=== PATIENT | male | born 1955 | race Caucasian/White ===

== ENCOUNTER 2020-05-25 17:22 | Emergency (ER) | payer MEDICAID ==
[2020-05-25] MEDS ORDERED: LIDOCAINE 1% 2 ML VIAL MC ONE (18:16)
[2020-05-25] MEDS ORDERED: SULFAMETH/TRIMETH DS 800/160 MG TABLET PO STA (18:16)
--- NOTE | 2020-05-25 18:25 | ED Physician Documentation ---
History of Present Illness - Stated complaint Stated Complaint: LT ARM WOUND/OOZE - Chief complaint Chief Complaint: Wound - History obtained from History obtained from: Patient - History of Present Illness Timing: How many days ago (4) Pain level max: 3 Pain level now: 3 - Additonal information Additional information: 64-year-old male presents to the emergency department the wound to the left wrist. He states he thinks he was bit by a spider a few days ago, noticed increased swelling and redness. Today he squeezed the area and pus came out. Tetanus is up-to-date. He is right-handed. Nothing makes it better or worse. No fevers. No chills. Review of Systems Constitutional: denies: Fever, Chills GI: denies: Vomiting PD PAST MEDICAL HISTORY - Past Medical History Cardiovascular: Deep vein thrombosis Respiratory: COPD Neuro: None Endocrine/Autoimmune: None GI: None : None HEENT: None Psych: Anxiety Musculoskeletal: None Derm: None - Past Surgical History Past Surgical History: No - Present Medications Home Medications: Ambulatory Orders Medication Instructions Recorded Confirmed Cephalexin [Keflex] 500 mg PO Q6H #40 capsule 05/25/20 Sulfamethox/Trimeth 800/160 1 each PO BID #20 tablet 05/25/20 [Bactrim Ds 800/160] - Allergies Allergies/Adverse Reactions: Allergies Allergy/AdvReac Type Severity Reaction Status Date / Time No Known Drug Allergies Allergy Verified 05/25/20 17:42 - Social History Does the pt smoke?: Yes Smoking Status: Former smoker Does the pt drink ETOH?: No Does the pt have substance abuse?: Yes Substance Use and Type: Marijuana, Other - Immunizations Immunizations are current?: Yes - POLST Patient has POLST: No PD ED PE NORMAL - Vitals Vital signs reviewed: Yes - General General: Alert and oriented X 3, No acute distress - HEENT HEENT: Moist mucous membranes - Derm Derm: Warm and dry - Extremities Extremities: Other (Left wrist, volar aspect-4 x 4 centimeter area of erythema with a fluctuant area in the middle which appears to have spontaneously ruptured and drained. A small amount of pus was able to be expressed. This was cultured. Mild redness to the remainder of the proximal forearm. Does not extend above) - Neuro Neuro: Alert and oriented X 3 Results - Vitals Vitals: Vital Signs - 24 hr 05/25/20 05/25/20 05/25/20 17:38 17:42 18:41 Temperature 36.2 C L 36.1 C L 36.1 C L Heart Rate 106 H 102 H 100 Respiratory 16 16 16 Rate Blood Pressure 177/101 H 168/93 H 158/88 H O2 Saturation 100 100 100 Oxygen O2 Source Room air - Labs Labs: Microbiology 05/25/20 18:30 Wound Culture - Preliminary Wrist - Left Staphylococcus Aureus PD MEDICAL DECISION MAKING - ED course Complexity details: considered differential, d/w patient ED course: Patient with a left wrist cellulitis/abscess. This spontaneously drained. No indication to further open the area at this time. Appears sufficiently drained. We will trial him on antibiotics and see how he progresses. The wound was cultured. Patient counseled regarding signs and symptoms for which I believe and urgent re-evaluation would be necessary. Patient with good understanding of and agreement to plan and is comfortable going home at this time This document was made in part using voice recognition software. While efforts are made to proofread this document, sound alike and grammatical errors may occur. Tetanus is up-to-date. Does not use IV drugs. Departure - Departure Disposition: 01 Home, Self Care Clinical Impression: Abscess Instructions: ED Abscess IandD Follow-Up: Rachel Sanchez MD [Primary Care Provider] - Within 3 Days Prescriptions: Sulfamethox/Trimeth 800/160 [Bactrim Ds 800/160] 1 each PO BID #20 tablet Cephalexin [Keflex] 500 mg PO Q6H #40 capsule Comments: Take all antibiotics until gone. Return if you worsen. Follow-up with your doctor in 3 days for a wound check. Return especially for fevers, worsening redness and/or swelling. This should start to improve within the next 24 hours. Soak the affected area 3 times a day in warm water to help drain the pus. Discharge Date/Time: 05/25/20 18:49
[2020-05-25] MEDS: cefTRIAXone 1 GM VIAL IM STA (18:32)
[2020-05-25 18:50] VITALS: BP 158/88
== END 2020-05-25 18:49 | disposition home or self-care (01) ==
LOC: ED 17:22
DX: L02.414 Cutaneous abscess of left upper limb (principal); Z87.891 Personal history of nicotine dependence
CPT/HCPCS: 87070; 87181; 87205; 96372; 99283; A9270

== ENCOUNTER 2022-07-21 08:00 | Outpatient (CLI) | payer MEDICARE | END 2022-07-21 23:59 | disposition home or self-care (01) | LOC: MERGE 08:00 → LAB.S 08:00 | PROVIDERS: ATTEND Physician Assistant | DX: R30.0 Dysuria (principal) | CPT/HCPCS: 87086 ==

== ENCOUNTER 2022-07-31 08:00 | Outpatient (CLI) | payer MEDICARE, MEDICAID ==
--- NOTE | 2022-07-31 18:38 | XRAY Report ---
PROCEDURE: Abdomen Acute INDICATIONS: ABDOMINAL PAIN TECHNIQUE: One view chest and two views of the abdomen were acquired. COMPARISON: None. FINDINGS: Surgical changes and devices: Pelvic fixation hardware. Vascular coils in the left pelvis.. Chest: Lungs are clear. Prominent lung volumes. Heart size is normal. Small bilateral pleural effus ions. No pneumoperitoneum. Abdomen: Scattered small bowel and colonic gas. Somewhat prominent stool in the right colon. No suspi cious calcifications. Visualized solid organ contours appear normal. Bones: No suspicious bony lesions. Normal scoliosis. IMPRESSION: 1. Small bilateral pleural effusions. Lungs are otherwise clear. 2. Nonobstructive bowel gas pattern. Somewhat prominent on the right colon. If clinically indicated consider CT abdomen pelvis with IV contrast for further evaluation. Reviewed by: Jose F Olsen MD on 07/31/2022 5:37 PM [place] Approved by: Jose F Olsen MD on 07/31/2022 5:37 PM [place] Station ID: [id number]
== END 2022-07-31 23:59 | disposition home or self-care (01) ==
LOC: DI.S 08:00
PROVIDERS: ATTEND Physician Assistant Medical
DX: R10.9 Unspecified abdominal pain (principal); J90 Pleural effusion, not elsewhere classified

== ENCOUNTER 2022-08-01 07:33 | Emergency (ER) | payer MEDICARE, MEDICAID ==
--- NOTE | 2022-08-01 07:47 | ED Physician Documentation ---
PD HPI MALE - Stated complaint Stated Complaint: MALE - Chief complaint Chief Complaint: General - History obtained from History obtained from: Patient - History of Present Illness Timing - onset: How many weeks ago (2) Timing - duration: Weeks (2) Timing - details: Gradual onset, Waxing and waning Associated symptoms: Urinary frequency (Has noticed lower abdominal cramping with difficulty initiating urination and feeling of incomplete emptying and intermittent blood clots and blood in the urine for 2 weeks. Seen at walk-in 07/21 with antibiotics given for possible UTI. Seen yesterday for same symptoms and had [facility] x-rays. No meds.), Hematuria Similar symptoms before: Has not had sx before Recently seen: Clinic (Walk In 1 1/2 weeks ago and again yesterday.) Review of Systems Constitutional: denies: Fever, Chills Nose: denies: Rhinorrhea / runny nose, Congestion Throat: denies: Sore throat Respiratory: denies: Cough GI: reports: Abdominal Pain (lower abd cramping pain, improved with getting better urine output. Feels constipated with some small amounts of stool out. No nausea nor vomiting, but less oral intake as increases need to urinate, which is painful.), Constipation. denies: Nausea, Vomiting, Diarrhea, Bloody / black stool : reports: Frequency, Hesitancy, Hematuria. denies: Dysuria, Discharge Skin: denies: Rash Musculoskeletal: denies: Neck pain, Back pain Neurologic: reports: Generalized weakness. denies: Near syncope, Altered mental status PD PAST MEDICAL HISTORY - Past Medical History Cardiovascular: Deep vein thrombosis Respiratory: COPD (without any inhalers nor meds. Last saw PMD off [place] 4 years ago. Moved to [facility] 3 years ago. No local PCP.) Neuro: None Endocrine/Autoimmune: None GI: None : None HEENT: None Psych: Anxiety Musculoskeletal: None Derm: None - Past Surgical History Past Surgical History: No - Present Medications Home Medications: Ambulatory Orders Medication Instructions Recorded Confirmed Tamsulosin [Flomax] 0.4 mg PO DAILY #5 cap 08/01/22 cephALEXin [Keflex] 500 mg PO TID #20 cap 08/01/22 polyethylene glycoL 3350 [Miralax] 17 gm PO DAILY PRN #1 each 08/01/22 - Allergies Allergies/Adverse Reactions: Allergies Allergy/AdvReac Type Severity Reaction Status Date / Time No Known Drug Allergies Allergy Verified 08/01/22 08:00 - Social History Does the pt smoke?: Yes Smoking Status: Former smoker Does the pt drink ETOH?: No Does the pt have substance abuse?: Yes - Immunizations Immunizations are current?: Yes - POLST Patient has POLST: No PD ED PE NORMAL - Vitals Vital signs reviewed: Yes - General General: Alert and oriented X 3, Well developed/nourished, Other (appears somewhat in pain. Talking with eyes closed. ) - Neck Neck: Supple, no meningeal sign, No adenopathy - Cardiac Cardiac: No murmur. No: RRR (regular but tachycardic. ) - Respiratory Respiratory: Clear bilaterally - Abdomen Abdomen: Soft, Non distended, No organomegaly, Other (Tender mainly in the suprapubic area. No hernias noted. Nondistended.). No: Normal bowel sounds (decreased) - Male Male : Other (normal external genitalia. ) - Rectal Rectal: Other (minimal stool in vault. Some prostatic enlargement, smooth. ) - Back Back: No CVA TTP - Derm Derm: Normal color, Warm and dry - Extremities Extremities: Normal ROM s pain, No edema, No calf tenderness / cord - Neuro Neuro: Alert and oriented X 3, No motor deficit, Normal speech Results - Vitals Vitals: Vital Signs - 24 hr 08/01/22 08/01/22 08/01/22 10:40 12:00 14:03 Heart Rate 87 93 68 Respiratory 16 17 17 Rate Blood Pressure 109/72 110/74 97/52 L O2 Saturation 97 98 100 Oxygen O2 Source Room air - Labs Labs: Laboratory Tests 08/01/22 08/01/22 08/01/22 07:54 07:54 08:53 WBC 11.9 H RBC 4.47 L Hgb 13.5 L Hct 41.7 L MCV 93.3 MCH 30.2 MCHC 32.4 RDW 13.4 Plt Count 424 MPV 9.9 Neut # (Auto) 8.4 H Lymph # (Auto) 1.8 Bibb # (Auto) 1.3 H Eos # (Auto) 0.2 Baso # (Auto) 0.1 Absolute Nucleated RBC 0.00 Nucleated RBC % 0.0 Sodium 136 Potassium 3.9 Chloride 95 L Carbon Dioxide 31 Anion Gap 10.0 BUN 11 Creatinine 0.7 Estimated GFR (MDRD) 113 Glucose 128 H Calcium 9.1 Magnesium 1.8 Total Bilirubin 0.8 AST 27 ALT 20 Alkaline Phosphatase 89 Total Protein 7.0 Albumin 3.8 Globulin 3.2 Albumin/Globulin Ratio 1.2 Lipase 25 Urine Color RED/BLOODY Urine Clarity BLOODY Urine pH 5.5 Ur Specific Walsh 1.020 Urine Protein >=300 H Urine Glucose (UA) NEGATIVE Urine Ketones TRACE Urine Occult Blood LARGE H Urine Nitrite POSITIVE H Urine Bilirubin NEGATIVE Urine Urobilinogen 1 (NORMAL) Ur Leukocyte Esterase TRACE H Urine RBC TNTC H Urine WBC 4-5 Ur Squamous Epith Cells FEW Squamous Urine Bacteria Many H Ur Microscopic Review INDICATED Urine Culture Comments INDICATED - Rads (name of study) abd/pelvic CT Radiology: Prelim report reviewed (thickened bladder wall - infection vs concern for malignancy. suggest cystoscopy.), See rad report PD MEDICAL DECISION MAKING - ED course Complexity details: reviewed results, re-evaluated patient (farah draining red tinged and some clots had been irrigated. ), considered differential, d/w patient Departure - Departure Disposition: 01 Home, Self Care Clinical Impression: Acute urinary retention UTI (urinary tract infection) Qualifiers: Urinary tract infection type: acute cystitis Hematuria presence: with hematuria Qualified Code(s): N30.01 - Acute cystitis with hematuria Condition: Stable Record reviewed to determine appropriate education?: Yes Follow-Up: Rachel Sanchez MD [Primary Care Provider] - [facility] [Provider Group] Debbie Domingo MD [Physician No Access] - Prescriptions: Tamsulosin [Flomax] 0.4 mg PO DAILY #5 cap cephALEXin [Keflex] 500 mg PO TID #20 cap polyethylene glycoL 3350 [Miralax] 17 gm PO DAILY PRN #1 each PRN Reason: Constipation Comments: I think most of your cramping and pain was related to urinary retention with a stretched bladder and spasms. This was from outlet obstruction from the blood clots and improper drainage. You do have signs of a urinary tract infection and that may be the cause of inflammation and swelling and bleeding. We will go with cephalexin antibiotic for a week as prescribed. The prior antibiotic was sulfamethoxazole so this 1 is a different 1 and see if it works better. We will keep the catheter in so you have good drainage of the blood and urine so it does not block the outflow. It can still get blocked even with the catheter at times so if you feel like you are having incomplete emptying or the catheter is not draining, then you can return for recheck and irrigation. Otherwise the CT scan did show an area of inflammation in the bladder wall that may be infection but would be concerning for possible tumor in the wall as well. You should follow-up with the urologist for evaluation and likely cystoscopy to look and evaluate. Tylenol or ibuprofen as needed for pains. Stay well-hydrated. With the catheter in place, you should be able to hydrate more without the concern of being unable to urinate. You can add MiraLAX to your current stool softener to maintain steady stool output but the CT scan did not show a significant amount of constipation. I sent your prescriptions to [facility] pharmacy at your direction. Discharge Date/Time: 08/01/22 14:04
[2022-08-01] MEDS ORDERED: KETOROLAC 15 MG/ML VIAL IVP STA (08:06)
[2022-08-01] MEDS ORDERED: SODIUM CHLORIDE 0.9% 1,000 ML IV STA (08:06)
[2022-08-01] MEDS ORDERED: ONDANSETRON 4 MG/2 ML VIAL IVP STA (08:06)
[2022-08-01] MEDS ORDERED: MORPHINE 10 MG/ML VIAL IVP STA (08:06)
[2022-08-01] MEDS ORDERED: iohexoL-300 100 ML VIAL ONE (08:12)
[2022-08-01 08:19] LABS: BASOPHILS # (AUTO) 0.1 10^3/uL (0.0-0.1); BASOPHILS % (AUTO) 0.7 %; EOSINOPHILS # (AUTO) 0.2 10^3/uL (0.0-0.7); EOSINOPHILS % (AUTO) 1.3 %; HCT - HEMATOCRIT 41.7 % (42.0-52.0); HGB - HEMOGLOBIN 13.5 g/dL (14.0-18.0); LYMPHOCYTES # (AUTO) 1.8 10^3/uL (1.5-3.5); LYMPHOCYTES % (AUTO) 15.4 %; MEAN CORPUSCULAR HEMOGLOBIN 30.2 pg (27.0-31.0); MEAN CORPUSCULAR HGB CONC 32.4 g/dL (32.0-36.0); MEAN CORPUSCULAR VOLUME 93.3 fL (80.0-94.0); MEAN PLATELET VOLUME 9.9 fL (7.4-11.4); MONOCYTES # (AUTO) 1.3 10^3/uL (0.0-1.0); MONOCYTES % (AUTO) 11.3 %; NEUTROPHILS # (AUTO) 8.4 10^3/uL (1.5-6.6); PLT - PLATELET COUNT 424 10^3/uL (130-450); RED BLOOD COUNT 4.47 10^6/uL (4.70-6.10); RED CELL DISTRIBUTION WIDTH 13.4 % (12.0-15.0); WHITE BLOOD COUNT 11.9 x10^3/uL (4.8-10.8)
[2022-08-01 08:28] LABS: ALBUMIN 3.8 g/dL (3.2-5.5); ALBUMIN/GLOBULIN RATIO 1.2 (1.0-2.2); BILIRUBIN,TOTAL 0.8 mg/dL (0.2-1.0); CALCIUM 9.1 mg/dL (8.5-10.3); CREATININE 0.7 mg/dL (0.6-1.2); MAGNESIUM 1.8 mg/dL (1.7-2.8); POTASSIUM 3.9 mmol/L (3.5-5.0)
[2022-08-01] MEDS ORDERED: iohexoL-300 100 ML VIAL IVP ONE (09:12)
[2022-08-01 09:19] LABS: BILIRUBIN,URINE NEGATIVE (NEGATIVE); GLUCOSE, URINE (UA) NEGATIVE (NEGATIVE); KETONES,URINE (UA) TRACE mg/dL (NEGATIVE); LEUKOCYTE ESTERASE, URINE TRACE (NEGATIVE); NITRITE,URINE POSITIVE (NEGATIVE); OCCULT BLOOD,URINE LARGE (NEGATIVE); PH,URINE 5.5 PH (5.0-7.5); PROTEIN,URINE >=300 mg/dL (NEGATIVE); UROBILINOGEN,URINE 1 (NORMAL) E.U./dL (NORMAL)
[2022-08-01 09:26] LABS: CLARITY,URINE BLOODY (CLEAR)
[2022-08-01 09:28] LABS: BACTERIA,URINE Many /HPF (None Seen); RBC,URINE TNTC /HPF (0-5); SQUAMOUS EPITHELIAL CELL,UR FEW Squamous (<= Few)
--- NOTE | 2022-08-01 09:33 | CT Report ---
PROCEDURE: ABDOMEN/PELVIS W INDICATIONS: Abdominal pain, acute, nonlocalized CONTRAST: 100ml omni 300 TECHNIQUE: After the administration of IV contrast, 5 mm thick sections acquired from the diaphragms to the symp hysis. 5 mm thick coronal and sagittal reformats were acquired. For radiation dose reduction, the f ollowing was used: automated exposure control, adjustment of mA and/or kV according to patient size. COMPARISON: None. FINDINGS: Image quality: Excellent Lower chest: Scattered scarring and suspected atelectasis. Pulmonary micronodules, for example in the right middle lobe 01/11. Solid organs: The liver is unremarkable. Cholelithiasis. No biliary ductal or pancreatic ductal dilat ion. No splenomegaly. No adrenal nodules. There is right pelviectasis without samira hydronephrosis. N o definite stones on this contrast enhanced imaging. Vessels and lymph nodes: No abdominal aortic aneurysm or pathologic adenopathy by size criteria. Prom inent pelvic lymph nodes, for example the right iliac chain measuring 8 mm. Bowel and peritoneum: No bowel obstruction or pathologic ascites. Body wall: Fat-containing probable hernia. Pelvis: The prostate is not well evaluated. There is heterogeneous enhancement. There is hyperdensity in the lumen of the bladder, probably with enhancement. There is asymmetric wal l thickening in the right apex. Bones: Age-indeterminate pelvic ring deformities with fixation screws. There are also degenerative ch anges. IMPRESSION: The above-described bladder findings are suspicious for urothelial malignancy versus chronic inflamma tion and should be further evaluated with cystoscopy in the setting of gross hematuria. Prominent pel alla lymph nodes are indeterminate in this clinical setting and can be followed on subsequent imaging. There are also pulmonary micronodules that can be followed in subsequent imaging depending on result s. Reviewed by: Chuck Todd MD on 08/01/2022 9:32 AM PDT Approved by: Chuck Todd MD on 08/01/2022 9:32 AM PDT Station ID: [id number]
[2022-08-01] MEDS ORDERED: LIDOCAINE 2% URO-JET 5 ML SYRINGE UR STA (09:45)
[2022-08-01] MEDS ORDERED: LACTULOSE 10 GM /15 ML UDC PO STA (09:46)
[2022-08-01] MEDS ORDERED: cefTRIAXone 1 GM VIAL IVP STA (09:47)
[2022-08-01] MEDS ORDERED: HYDROmorphone 1 MG/ML CARPUJECT IVP STA (12:48)
[2022-08-01 14:05] VITALS: BP 97/52
== END 2022-08-01 14:04 | disposition home or self-care (01) ==
LOC: ED 07:33
DX: N30.01 Acute cystitis with hematuria (principal); R33.9 Retention of urine, unspecified; R53.1 Weakness; Z87.891 Personal history of nicotine dependence
CPT/HCPCS: 36415; 74177; 80053; 81001; 83690; 83735; 85025; 87086; 96374; 96375; 99284; A9270; J1170; Q9967; 81003